=== PATIENT | male | born 1990 | race Caucasian/White ===

== ENCOUNTER 2019-09-26 15:14 | Emergency (ER) | payer OTHER ==
[~2019-09-26] VITALS: Ht 190.5 cm; Wt 86.2 kg
[~2019-09-26 15:14] MED LIST: KEFLEX500 MG PO; NORCO 5-325 TA1 EACH PO
[2019-09-26 15:23] VITALS: BP 125/72
[2019-09-26] MEDS ORDERED: PERCOCET 5-3251 EACH PO (15:39)
== END 2019-09-26 16:16 | disposition home or self-care (01) ==
LOC: M.ERS 15:14
DX: S22.41XA Multiple fractures of ribs, right side, initial encounter for closed fracture (principal); F17.210 Nicotine dependence, cigarettes, uncomplicated; Z90.49 Acquired absence of other specified parts of digestive tract; X58.XXXA Exposure to other specified factors, initial encounter; Y93.89 Activity, other specified; Y92.89 Other specified places as the place of occurrence of the external cause; Y99.8 Other external cause status